=== PATIENT | female | born 1985 | race Caucasian/White ===

== ENCOUNTER 2016-11-23 11:37 | Outpatient (CLI) | payer BC ==
--- NOTE | 2016-11-23 12:24 | DIAGNOSTIC IMAGING REPORT ---
PROCEDURE: XR SINUSES 3 VIEWS OR MORE INDICATION: CHRONIC SINUSITIS TECHNIQUE: Three views sinuses. COMPARISON: None. FINDINGS: There is fluid in the right maxillary sinus. The frontal ethmoid and sphenoid sinuses are clear. IMPRESSION: 1. Right maxillary sinusitis.
== END 2016-11-23 23:00 ==
LOC: XR SRH 11:37
DX: J32.0 Chronic maxillary sinusitis (principal)